=== PATIENT | male | born 1985 | race Two or more races ===

== ENCOUNTER 2025-07-13 06:23 | Emergency (ER) | payer SELFPAY ==
[~2025-07-13] VITALS: Ht 162.6 cm; Wt 66.7 kg
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
--- NOTE | 2025-07-13 08:32 | DVH ---
EXAM: CT CERVICAL WITHOUT CONTRAST INDICATION: R/o fracture EXAM DATE: 07/13/2025 07:59 AM COMPARISON: XY CERVICAL SPINE 3V on DOS: 07/13/25 TECHNIQUE: Multiple axial CT images of the cervical spine were obtained using bone algorithm. Axial a nd coronal reformatting was done. Bone and soft tissue windows were reviewed. Radiation Dose Information: CT Dose: CTDI volume is 25 mGy. Dose-length product is 250 mGy*cm FINDINGS: The cervical alignment is intact. No acute cervical spine fracture is identified. The vertebral body heights are intact. No suspicious osseous lesions are identified. No significant degenerative changes are identified. There is no prevertebral soft tissue swelling. IMPRESSION: No evidence of acute cervical spine fracture or traumatic malalignment. All CT scans at this medical facility are performed using dose modulation techniques as appropriate t o a performed exam including the following: Automated exposure control was utilized; adjustment of th e MA and/or KV according to patient size; and use of iterative reconstruction technique.
[2025-07-13] MEDS ORDERED: NAPR-746 PO (08:42)
[2025-07-13 08:46] VITALS: BP 110/74; PULSE 57; RESP 18; TEMP 97.6; O2SAT 100
== END 2025-07-13 08:49 | disposition home or self-care (01) ==
LOC: ER 06:23
DX: S13.4XXA Sprain of ligaments of cervical spine, initial encounter (principal); Z79.899 Other long term (current) drug therapy; V43.52XA Car driver injured in collision with other type car in traffic accident, initial encounter; Y93.89 Activity, other specified; Y92.488 Other paved roadways as the place of occurrence of the external cause; Y99.8 Other external cause status
CPT/HCPCS: 72040; 72125